=== PATIENT | female | born 1970 ===

== ENCOUNTER → 2021-06-02 | Outpatient (CLI) | payer SELFPAY | END | disposition home or self-care (01) | LOC: LAB 10:32 → LAB SHORT 10:32 | DX: N39.0 Urinary tract infection, site not specified (principal) | CPT/HCPCS: 87077; 87086; 87186 ==

== ENCOUNTER → 2023-05-12 | Outpatient (CLI) | payer SELFPAY ==
[2023-05-13 13:05] LABS: Candida species (DNA Probe) Negative (NEGATIVE); G. vaginalis (DNA Probe) Positive (NEGATIVE); T. vaginalis (DNA Probe) Negative (NEGATIVE)
== END ==
LOC: LAB 13:37 → LAB SHORT 13:37
PROVIDERS: Nurse Practitioner Family
DX: N76.89 Other specified inflammation of vagina and vulva (principal); R10.32 Left lower quadrant pain
CPT/HCPCS: 87480; 87510; 87660

== ENCOUNTER → 2023-07-31 | Outpatient (CLI) | payer SELFPAY | END | disposition home or self-care (01) | LOC: LAB SHORT 16:30 → LAB 16:30 | DX: R30.0 Dysuria (principal) | CPT/HCPCS: 87077; 87086; 87186 ==